=== PATIENT | female | born 1965 | race Caucasian/White ===

== ENCOUNTER 2020-01-22 15:57 | Inpatient (IN) | payer OTHER, MEDICAID ==
[~2020-01-22] VITALS: Ht 149.9 cm; Wt 65.3 kg
[2020-01-22] MEDS ORDERED: NITROGLYCERIN 0.4MG TABLET SL SL PRN (17:30)
[2020-01-22 17:48] LABS: CHLORIDE 109 mEq/L (98-107)
[2020-01-22 17:52] LABS: D-DIMER 0.2 mg/L FEU (<0.50); PARTIAL THROMBOPLASTIN TIME 30.4 sec (23.4-31.0); PROTHROMBIN TIME 10.4 sec (9.6-11.0)
[2020-01-22 17:54] LABS: BASOPHILS % 0.7 % (0.0-2.0); EOSINOPHILS % 2.4 % (0.0-5.0); HEMATOCRIT. 40.1 % (36.0-48.0); HEMOGLOBIN. 13.6 g/dL (12.0-16.0); LYMPHOCYTES % 39.1 % (20.0-50.0); MEAN CORPUSCULAR HEMOGLOBIN 31.3 pg (28.0-32.0); MEAN CORPUSCULAR VOLUME 92.4 fL (81.0-99.0); MEAN PLATELET VOLUME 9.3 fl (7.4-10.4); MONOCYTES % 7.2 % (2.0-8.0); NEUTROPHILS % 50.6 % (40.0-76.0); PLATELET 241 x1000/uL (130-400); RED BLOOD CELL COUNT 4.34 mill/uL (4.2-5.4); RED CELL DISTRIBUTION WIDTH 13.1 % (11.6-14.6)
[2020-01-22] MEDS ORDERED: POTASSIUM CHLORIDE 20MEQ TABLET SR PO ONE (18:45)
[2020-01-22 21:20] VITALS: BP 123/69
[2020-01-22 21:21] VITALS: BP 132/69
[2020-01-22] MEDS ORDERED: IPRATROPIUM/ALBUTEROL 0.5-3(2.5)MG/3ML NEB NEB PRN (22:15)
[2020-01-22] MEDS ORDERED: ONDANSETRON HCL 4MG/2ML INJ IV PRN (22:15)
[2020-01-22] MEDS ORDERED: CLONIDINE 0.1MG TABLET PO PRN (22:15)
[2020-01-22] MEDS ORDERED: MAGNESIUM/ALUMINUM HYDROXIDE/SIMETHICONE 30ML UDC PO PRN (22:15)
[2020-01-22] MEDS ORDERED: ACETAMINOPHEN 325MG TABLET PO PRN (22:15)
[2020-01-22] MEDS ORDERED: HYDROCODONE/ACETAMINOPHEN 5/325MG TABLET PO PRN (22:15)
[2020-01-22] MEDS ORDERED: ENOXAPARIN 40MG/0.4ML SYR SUBCUT SCH (23:00)
[2020-01-23] VITALS: BP 109/62
[2020-01-23 04:00] VITALS: BP 138/42
[2020-01-23 06:27] LABS: BASOPHILS % 0.5 % (0.0-2.0); EOSINOPHILS % 2.7 % (0.0-5.0); HEMATOCRIT. 41.6 % (36.0-48.0); LYMPHOCYTES % 37.1 % (20.0-50.0); MEAN CORPUSCULAR HEMOGLOBIN 31.2 pg (28.0-32.0); MEAN CORPUSCULAR VOLUME 92.5 fL (81.0-99.0); MEAN PLATELET VOLUME 9.2 fl (7.4-10.4); NEUTROPHILS % 52.7 % (40.0-76.0); PLATELET 246 x1000/uL (130-400); RED BLOOD CELL COUNT 4.49 mill/uL (4.2-5.4); RED CELL DISTRIBUTION WIDTH 12.9 % (11.6-14.6)
[2020-01-23 06:37] LABS: CHLORIDE 111 mEq/L (98-107)
[2020-01-23 06:44] LABS: LDL CHOLESTEROL 151 mg/dL (5-100)
[2020-01-23 06:45] LABS: CREATINE KINASE 87 IU/L (26-192); HDL CHOLESTEROL 65 mg/dL (40-59)
[2020-01-23 06:48] LABS: CREATINE KINASE MB FRACTION 1.1 ng/mL (0.5-3.6)
[2020-01-23 08:00] VITALS: BP 104/55
[2020-01-23] MEDS ORDERED: ASPIRIN 81MG EC TABLET PO SCH (09:00)
[2020-01-23 12:00] VITALS: BP 111/64
[2020-01-23 12:43] LABS: CLARITY URINE CLEAR (CLEAR); COLOR URINE YELLOW (YELLOW); KETONES URINE NEGATIVE (NEGATIVE); LEUKOCYTE ESTERASE URINE TRACE (NEGATIVE); NITRITE URINE NEGATIVE (NEGATIVE); OCCULT BLOOD URINE NEGATIVE (NEGATIVE); PROTEIN URINE NEGATIVE (NEGATIVE); SPECIFIC GRAVITY URINE 1.022 (1.005-1.030); UROBILINOGEN URINE 0.2 E.U./dL (0.2-1.0)
[2020-01-23 12:56] LABS: *AMPHETAMINES SCREEN URINE NEGATIVE (NEGATIVE); *BARBITURATES SCREEN URINE NEGATIVE (NEGATIVE); METHADONE URINE SCREEN NEGATIVE (NEGATIVE)
[2020-01-23 12:57] LABS: *BENZODIAZEPINES SCREEN URINE NEGATIVE (NEGATIVE); CANNABINOID URINE SCREEN NEGATIVE (NEGATIVE)
[2020-01-23 12:59] LABS: *COCAINE SCREEN URINE NEGATIVE (NEGATIVE); OPIATES URINE SCREEN NEGATIVE (NEGATIVE)
[2020-01-23 13:03] LABS: PHENCYCLIDINE URINE SCREEN NEGATIVE (NEGATIVE)
[2020-01-23 15:46] VITALS: BP 129/74
[2020-01-23 15:55] VITALS: BP 129/74
[2020-01-23 16:52] LABS: CREATINE KINASE 82 IU/L (26-192)
[2020-01-23 16:54] LABS: CREATINE KINASE MB FRACTION < 1.0 ng/mL (0.5-3.6)
[2020-01-23] MEDS ORDERED: ATORVASTATIN CALCIUM 40MG TABLET PO SCH (21:00)
== END 2020-01-23 18:15 | disposition short-term general hospital (02) | DRG 311 ==
LOC: ER 15:57 → 5WST 19:10 → ENRESERV 19:40
PROVIDERS: ADMIT Internal Medicine; ATTEND Internal Medicine
DX: I20.0 Unstable angina (principal); E78.00 Pure hypercholesterolemia, unspecified; E78.5 Hyperlipidemia, unspecified; I10 Essential (primary) hypertension; Z98.891 History of uterine scar from previous surgery; Z79.899 Other long term (current) drug therapy
CPT/HCPCS: 36415; 71045; 80048; 80053; 80061; 80305; 81003; 82550; 82553; 82962; 83735; 83880; 84443; 84484; 85025; 85379; 93005; 93306; 93970; 99285; J1650

== ENCOUNTER 2023-04-06 12:07 | Emergency (ER) | payer MEDICAID, OTHER ==
[~2023-04-06] VITALS: Ht 132.1 cm; Wt 63.5 kg
[2023-04-06 12:17] VITALS: O2SAT 99
[2023-04-06 12:52] LABS: BASOPHILS % 0.8 % (0.0-2.0); EOSINOPHILS % 2.3 % (0.0-5.0); HEMATOCRIT. 41.4 % (36.0-48.0); HEMOGLOBIN. 13.9 g/dL (12.0-16.0); LYMPHOCYTES % 38.8 % (20.0-50.0); MEAN CORPUSCULAR HEMOGLOBIN 30.5 pg (28.0-32.0); MEAN CORPUSCULAR HGB CONC 33.5 g/dL (31.0-37.0); MEAN CORPUSCULAR VOLUME 91.1 fL (81.0-99.0); MEAN PLATELET VOLUME 9.3 fl (7.4-10.4); MONOCYTES % 5.9 % (2.0-8.0); NEUTROPHILS % 52.2 % (40.0-76.0); PLATELET 253 x1000/uL (130-400); RED BLOOD CELL COUNT 4.55 mill/uL (4.2-5.4); RED CELL DISTRIBUTION WIDTH 13.8 % (11.6-14.6); WHITE BLOOD COUNT 7.9 x1000/uL (4.5-11.0)
[2023-04-06 13:00] LABS: CLARITY URINE CLEAR (CLEAR); COLOR URINE YELLOW (YELLOW); GLUCOSE URINE NEGATIVE (NEGATIVE); KETONES URINE NEGATIVE (NEGATIVE); LEUKOCYTE ESTERASE URINE TRACE (NEGATIVE); NITRITE URINE NEGATIVE (NEGATIVE); OCCULT BLOOD URINE TRACE (NEGATIVE); PH URINE 5.5 (4.5-8.0); PROTEIN URINE NEGATIVE (NEGATIVE); SPECIFIC GRAVITY URINE 1.016 (1.005-1.030); UROBILINOGEN URINE 0.2 E.U./dL (0.2-1.0)
[2023-04-06 13:04] LABS: ALANINE AMINOTRANSFERASE 28 IU/L (10-49); ALBUMIN 4.1 g/dL (3.2-4.8); ASPARTATE AMINOTRANSFERASE 27 IU/L (<34); BILIRUBIN TOTAL 0.5 mg/dL (0.1-1.0); CALCIUM 9.2 mg/dL (8.7-10.4); CARBON DIOXIDE 28 mEq/L (21-32); CHLORIDE 107 mEq/L (98-107); CREATININE 0.6 mg/dL (0.6-1.0); GLUCOSE 95 mg/dL (70-105); POTASSIUM 3.8 mEq/L (3.5-5.1); PROTEIN TOTAL 7.7 g/dL (6.0-8.3); SODIUM 140 mEq/L (136-145); UREA NITROGEN BLOOD 12 mg/dL (9-23)
[2023-04-06 13:17] LABS: RBC URINE 0-2 /hpf (0-2); SQUAMOUS EPITHELIAL CELL URINE FEW /lpf (RARE/1+); WBC URINE 0-2 /hpf (0-2)
[2023-04-06 13:18] LABS: BACTERIA URINE TRACE; YEAST URINE NONE SEEN
[2023-04-06] MEDS ORDERED: IBUP-2029 MT (17:28)
[2023-04-06 18:10] VITALS: BP 142/59; PULSE 65; RESP 18; TEMP 98.2
== END 2023-04-06 18:12 | disposition home or self-care (01) ==
LOC: ER 12:07
DX: R10.9 Unspecified abdominal pain (principal); Z98.890 Other specified postprocedural states
CPT/HCPCS: 36415; 76770; 80053; 81003; 85025; 99284

== ENCOUNTER 2024-03-13 09:02 | Emergency (ER) | payer OTHER ==
[~2024-03-13] VITALS: Ht 147.3 cm; Wt 67.1 kg
[~2024-03-13 09:02] MED LIST: IBUP-2029 MT
[2024-03-13 09:12] VITALS: O2SAT 98
[2024-03-13] MEDS: LIDOCAINE 5% PATCH TOP SCH (10:13)
[2024-03-13] MEDS: METHOCARBAMOL 500MG TABLET PO ONE (10:13)
[2024-03-13] MEDS: IBUPROFEN 400MG TABLET PO ONE (10:13)
[2024-03-13 12:15] LABS: BASOPHILS % 0.7 % (0.0-2.0); EOSINOPHILS % 2.3 % (0.0-5.0); HEMATOCRIT. 42.6 % (36.0-48.0); HEMOGLOBIN. 14.4 g/dL (12.0-16.0); LYMPHOCYTES % 37.7 % (20.0-50.0); MEAN CORPUSCULAR HEMOGLOBIN 31.4 pg (28.0-32.0); MEAN CORPUSCULAR HGB CONC 33.8 g/dL (31.0-37.0); MEAN CORPUSCULAR VOLUME 92.9 fL (81.0-99.0); MEAN PLATELET VOLUME 8.8 fl (7.4-10.4); MONOCYTES % 5.3 % (2.0-8.0); PLATELET 286 x1000/uL (130-400); RED BLOOD CELL COUNT 4.59 mill/uL (4.2-5.4); RED CELL DISTRIBUTION WIDTH 13.1 % (11.6-14.6)
[2024-03-13 12:17] LABS: CHLORIDE 108 mEq/L (98-107); POTASSIUM 3.8 mEq/L (3.5-5.1); SODIUM 140 mEq/L (136-145)
[2024-03-13 12:24] LABS: CARBON DIOXIDE 26 mEq/L (21-32); CREATININE 0.6 mg/dL (0.6-1.0); GLUCOSE 96 mg/dL (70-105); UREA NITROGEN BLOOD 12 mg/dL (9-23)
[2024-03-13 12:25] LABS: CALCIUM 9.5 mg/dL (8.7-10.4)
[2024-03-13 12:29] LABS: TROPONIN I HIGH SENSITIVITY < 4 ng/L (3.0-34)
[2024-03-13] MEDS ORDERED: LIDO700A30 TP (12:43)
[2024-03-13] MEDS ORDERED: METH-653 MT (12:43)
[2024-03-13 13:02] VITALS: BP 143/73; PULSE 67; RESP 18; TEMP 37.05852; O2SAT 99
== END 2024-03-13 13:04 | disposition home or self-care (01) ==
LOC: ER 09:02
DX: M79.601 Pain in right arm (principal); M75.91 Shoulder lesion, unspecified, right shoulder; Z98.890 Other specified postprocedural states
CPT/HCPCS: 36415; 73030; 80048; 83880; 84484; 85025; 93005; 99285

== ENCOUNTER 2024-03-31 07:52 | Emergency (ER) | payer OTHER ==
[~2024-03-31] VITALS: Ht 154.9 cm; Wt 68.0 kg
[~2024-03-31 07:52] MED LIST changes: +LIDO700A30 TP; +METH-653 MT
[2024-03-31 07:55] VITALS: O2SAT 97
[2024-03-31 07:58] VITALS: BP 122/55; PULSE 65; RESP 18; TEMP 98.3; O2SAT 99
[2024-03-31 08:51] LABS: BASOPHILS % 0.7 % (0.0-2.0); EOSINOPHILS % 1.6 % (0.0-5.0); HEMATOCRIT. 42.3 % (36.0-48.0); HEMOGLOBIN. 14.2 g/dL (12.0-16.0); LYMPHOCYTES % 36.6 % (20.0-50.0); MEAN CORPUSCULAR HEMOGLOBIN 31.3 pg (28.0-32.0); MEAN CORPUSCULAR HGB CONC 33.6 g/dL (31.0-37.0); MEAN CORPUSCULAR VOLUME 93.1 fL (81.0-99.0); MEAN PLATELET VOLUME 9.1 fl (7.4-10.4); MONOCYTES % 5.1 % (2.0-8.0); PLATELET 259 x1000/uL (130-400); RED BLOOD CELL COUNT 4.54 mill/uL (4.2-5.4); RED CELL DISTRIBUTION WIDTH 12.8 % (11.6-14.6); WHITE BLOOD COUNT 6.9 x1000/uL (4.5-11.0)
[2024-03-31 08:55] LABS: CHLORIDE 109 mEq/L (98-107); POTASSIUM 4.2 mEq/L (3.5-5.1); SODIUM 141 mEq/L (136-145)
[2024-03-31 08:56] LABS: CALCIUM 9.5 mg/dL (8.7-10.4); CARBON DIOXIDE 23 mEq/L (21-32)
[2024-03-31 09:01] LABS: CREATININE 0.7 mg/dL (0.6-1.0); GLUCOSE 96 mg/dL (70-105); UREA NITROGEN BLOOD 11 mg/dL (9-23)
[2024-03-31 09:07] LABS: TROPONIN I HIGH SENSITIVITY < 4 ng/L (3.0-34)
== END 2024-03-31 15:28 | disposition home or self-care (01) ==
LOC: ER 07:52
DX: R07.89 Other chest pain (principal); R42 Dizziness and giddiness; J45.909 Unspecified asthma, uncomplicated; Z98.890 Other specified postprocedural states
CPT/HCPCS: 36415; 71045; 80048; 84484; 85025; 93005; 99285